=== PATIENT | female | born 1940 | race Caucasian/White ===

== ENCOUNTER → 2021-08-03 09:39 | Outpatient (BNVA) | payer OTHER, SELFPAY | PROVIDERS: Family Provider Family Medicine; Visit Provider Podiatrist Foot & Ankle Surgery | DX: B35.3 Tinea pedis (principal); E11.42 Type 2 diabetes mellitus with diabetic polyneuropathy; M21.611 Bunion of right foot; M21.612 Bunion of left foot; M21.41 Flat foot [pes planus] (acquired), right foot; M21.42 Flat foot [pes planus] (acquired), left foot; L60.3 Nail dystrophy | CPT/HCPCS: 11750 ==

== ENCOUNTER 2021-08-25 07:24 | Day surgery (SDC) | payer OTHER, SELFPAY ==
[2021-08-24 11:50] VITALS: BMI 27.8
[2021-08-25 08:07] VITALS: BP 148/68; PULSE 73; RESP 16; TEMP 36.3; O2SAT 98
--- NOTE | 2021-08-25 08:19 | W.PM.OPSFHP ---
Same Day Surgery H&P Indication for Procedure/HPI DATE OF PROCEDURE: August 25, 2021 CHIEF COMPLAINT/INDICATIONFOR SURGICAL PROCEDURE: History of colon polyps PREOP DIAGNOSIS: History of colon polyps PLANNED PROCEDURE: Operation Date: 08/25/21 09:00 Proposed Procedures p Colonoscopy 19993/z86.010(Not Applicable) - Ben Disla MD 06/04/2021 This is a pleasant 80 years old female patient referred to my practice with history of colon polyps as last colonoscopy was done 2 to 3 years ago.? She denies any bleeding per rectum or history of colon cancer.? She is referred to me for surveillance colonoscopy. 08/25/2021 Patient comes today for surveillance colonoscopy ROS All systems have been reviewed negative except as for the above or per problem list. Medications/Allergies* Home Medications Medication Instructions Recorded Confirmed Type insulin glargine 100 unit/mL 30 unit SUBCUT BEDTIME ml 12/27/20 08/25/21 History subcutaneous solution (Lantus U-100 Insulin) lisinopril 40 mg tablet 40 mg PO DAILY 12/27/20 08/25/21 History metformin 1,000 mg tablet 1,000 mg PO DAILY 12/27/20 08/25/21 History omeprazole 20 mg capsule,delayed 20 mg PO .prn PRN cap 12/27/20 08/25/21 History release cholecalciferol (vitamin D3) 25 25 mcg PO DAILY 08/24/21 08/24/21 History mcg (1,000 unit) tablet (Vitamin D3) ginkgo biloba 60 mg capsule 60 mg PO DAILY 08/24/21 08/24/21 History multivitamin with minerals-folic 1 tab PO DAILY 08/24/21 08/24/21 History acid 200 mcg chewable tablet (Women's Multivitamin Gummies) turmeric root extract 1,053 mg 1,076 mg PO DAILY 08/24/21 08/24/21 History tablet vitamin B complex 1 cap PO DAILY 08/24/21 08/24/21 History zinc 50 mg tablet 50 mg PO DAILY 08/24/21 08/24/21 History Allergies/Adverse Reactions Allergy/AdvReac Type Severity Reaction Status Date / Time tetanus immune globulin Allergy hives Verified 08/25/21 08:19 Pertinent History/Comorbid Conditions* Social History Smoking and tobacco status: never smoked Second hand smoke exposure: No Alcohol intake: never Pertinent Exam Findings alert, oriented x 3, regular rate & rhythm and procedure specific exam findings (Abdominal examination nontender nondistended soft) Recommendations Surgery/Procedure today (Surveillance colonoscopy) Coding Level of Care Code Acute Spray Painter Helper for Eve Llamas
[2021-08-25] MEDS: sodium chloride 0.9% 1,000 ML 30 ML IV (08:22)
--- NOTE | 2021-08-25 08:47 | ANES.PREANE2 ---
Pre-Anesthetic Assessment Height/Weight: Height 1.65 m Weight 75.75 kg Temp Pulse Resp BP Pulse Ox 97.3 F L 73 16 148/68 98 08/25/21 08:07 08/25/21 08:07 08/25/21 08:07 08/25/21 08:07 08/25/21 08:07 Preop Diagnosis: History of colon polyps Operation Date: 08/25/21 09:00 Proposed Procedures p Colonoscopy 66785/z86.010(Not Applicable) - Ben Disla MD Familial anesthetic complications: None Was Beta Jaci taken within 24 hours: N/A Was Clonidine taken within 24 hours: N/A Last intake: Intake Last Liquid Date 08/24/21 Last Liquid Time 21:00 Last Solid Date 08/23/21 Last Solid Time 00:00 Social No alcohol and No tobacco Exam alert, oriented x 3, clear to auscultation bilaterally and regular rate & rhythm Airway Submandibular: within normal limits Cervical ROM: within normal limits Mallampati: Class II CV/HEM Hypertension Metabolic Diabetes Mellitus Anesthetic Plan ASA status: 2 Anesthesia: MAC Medications/Allergies Home Medications Medication Instructions Recorded Confirmed Last Taken Type insulin glargine 100 unit/mL 30 unit SUBCUT BEDTIME ml 12/27/20 08/25/21 08/24/21 History subcutaneous solution (Lantus U-100 Insulin) lisinopril 40 mg tablet 40 mg PO DAILY 12/27/20 08/25/21 08/24/21 History metformin 1,000 mg tablet 1,000 mg PO DAILY 12/27/20 08/25/21 08/24/21 History omeprazole 20 mg capsule,delayed 20 mg PO .prn PRN cap 12/27/20 08/25/21 Unknown History release cholecalciferol (vitamin D3) 25 25 mcg PO DAILY 08/24/21 08/24/21 08/17/21 History mcg (1,000 unit) tablet (Vitamin D3) ginkgo biloba 60 mg capsule 60 mg PO DAILY 08/24/21 08/24/21 08/17/21 History multivitamin with minerals-folic 1 tab PO DAILY 08/24/21 08/24/21 08/17/21 History acid 200 mcg chewable tablet (Women's Multivitamin Gummies) turmeric root extract 1,053 mg 1,076 mg PO DAILY 08/24/21 08/24/21 08/17/21 History tablet vitamin B complex 1 cap PO DAILY 08/24/21 08/24/21 08/17/21 History zinc 50 mg tablet 50 mg PO DAILY 08/24/21 08/24/21 08/17/21 History Allergies Allergy/AdvReac Type Severity Reaction Status Date / Time tetanus immune globulin Allergy hives Verified 08/25/21 08:19 Current Medications Generic Name Dose Route Start Last Admin Trade Name Jaguarq PRN Reason Stop Dose Admin Sodium Chloride 1,000 mls @ 30 mls/hr 08/25/21 08:00 08/25/21 08:22 Sodium Chloride 0.9% IV 30 mls/hr .Q24H ALBIN Administration PFSH Anesthesia Social History Smoking and tobacco status: never smoked Second hand smoke exposure: No Alcohol intake: never Data Anesthesia Cardiac Studies: No Data to Display
[2021-08-25 10:15] VITALS: BP 137/73; PULSE 63; RESP 16; TEMP 36.1; O2SAT 99
[2021-08-25 10:32] VITALS: BP 135/68; PULSE 70; RESP 18; O2SAT 99
--- NOTE | 2021-08-25 13:18 | ANE.PACU2 ---
Inpatient post-anesthesia follow up: Airway intact: Yes Vital signs: Temperature 97 F Pulse Rate 70 Respiratory Rate 18 Blood Pressure 135/68 Pulse Oximetry 99 Oxygen Delivery Me thod Room Air Oxygen Flow Rate Fraction of Inspir ed Oxygen Hydration adequate: Yes Nausea and vomiting: No Pain level: 1 Mental status: Baseline
== END 2021-08-25 10:43 | disposition home or self-care (01) ==
PROVIDERS: PCP Family Medicine; Visit Provider Surgery
PROC: 0DJD8ZZ Inspection of Lower Intestinal Tract, Via Natural or Artificial Opening Endoscopic (ICD-10-PCS; CPT 45378; principal; 2021-08-25 09:00)
DX: Z12.11 Encounter for screening for malignant neoplasm of colon (principal); Z86.010 Personal history of colon polyps; K57.30 Diverticulosis of large intestine without perforation or abscess without bleeding; D12.2 Benign neoplasm of ascending colon; E11.9 Type 2 diabetes mellitus without complications; Z79.4 Long term (current) use of insulin; I10 Essential (primary) hypertension; Z79.84 Long term (current) use of oral hypoglycemic drugs
CPT/HCPCS: 45380; 88305; J2704; J7030

== ENCOUNTER → 2021-08-31 08:08 | Outpatient (BNVA) | payer OTHER, SELFPAY | PROVIDERS: PCP Family Medicine; Visit Provider Podiatrist Foot & Ankle Surgery | DX: L60.8 Other nail disorders (principal); L60.3 Nail dystrophy | CPT/HCPCS: 99213 ==

== ENCOUNTER → 2021-09-06 10:45 | Outpatient (BNVA) | payer OTHER, SELFPAY | PROVIDERS: PCP Family Medicine; Visit Provider Surgery | DX: Z09 Encounter for follow-up examination after completed treatment for conditions other than malignant neoplasm (principal); K57.31 Diverticulosis of large intestine without perforation or abscess with bleeding | CPT/HCPCS: 99213 ==

== ENCOUNTER → 2021-09-28 10:27 | Outpatient (BNVA) | payer OTHER, MEDICARE, SELFPAY | PROVIDERS: PCP Family Medicine; Visit Provider Podiatrist Foot & Ankle Surgery | DX: B35.3 Tinea pedis (principal); E11.42 Type 2 diabetes mellitus with diabetic polyneuropathy; L60.3 Nail dystrophy; M21.611 Bunion of right foot; M21.612 Bunion of left foot; M21.41 Flat foot [pes planus] (acquired), right foot; M21.42 Flat foot [pes planus] (acquired), left foot; Z98.890 Other specified postprocedural states | CPT/HCPCS: 11750; 99214 ==

== ENCOUNTER → 2022-01-02 09:59 | Outpatient (BNVA) | payer OTHER, MEDICARE, SELFPAY | PROVIDERS: PCP Family Medicine; Visit Provider Podiatrist Foot & Ankle Surgery | DX: E11.42 Type 2 diabetes mellitus with diabetic polyneuropathy (principal); L60.0 Ingrowing nail; B35.3 Tinea pedis; L60.3 Nail dystrophy; Z98.890 Other specified postprocedural states; M21.611 Bunion of right foot; M21.41 Flat foot [pes planus] (acquired), right foot; Z79.4 Long term (current) use of insulin; Z79.84 Long term (current) use of oral hypoglycemic drugs; M21.612 Bunion of left foot; M21.42 Flat foot [pes planus] (acquired), left foot | CPT/HCPCS: 99214 ==

== ENCOUNTER → 2022-01-31 09:29 | Outpatient (BNVA) | payer MEDICARE, OTHER, SELFPAY | PROVIDERS: PCP Family Medicine; Visit Provider Otolaryngology | DX: R26.81 Unsteadiness on feet (principal); H95 Intraoperative and postprocedural complications and disorders of ear and mastoid process, not elsewhere classified | CPT/HCPCS: 69220; 99203 ==

== ENCOUNTER 2022-04-24 13:10 | Outpatient (CLI) | payer OTHER, SELFPAY ==
--- NOTE | 2022-04-24 13:37 | USCV_ITS ---
Efrain Veronica Age: 81 Gender: F : 1940 Exam Date: 04/24/2022 14:04 Ordering Phys: Ashtyn Barrera MD Technologist: CT Exam Location: [facility] [place]_ Indication: LEFT BRUIT Risk Factors: Previous Vascular Surgery: Right Brachial BP: / Left Brachial BP: / Right Left Velocity (cm/s) Spectral Plaque Velocity (cm/s) Spectral Plaque Syst/Diast Broadening Syst/Diast Broadening 63.90/ 11.50 Prox CCA 76.30 / 15.10 74.10/ 13.40 Mid CCA 73.10 / 15.50 69.20/ 14.30 Distal CCA 64.40 / 15.30 50.80/ 13.90 Prox ICA 55.10 / 17.20 60.40/ 17.50 Mid ICA 69.30 / 20.10 53.80/ 15.10 Distal ICA 75.60 / 21.90 68.90 ECA 84.90 0.82 ICA/CCA 0.99 Antegrade Vertebral Antegrade 33.20/ 10.30 cm/s 41.40/ 15.80 cm/s Bi Subclavian Bi 78.10 126.2 0 FINDINGS NO STENOSIS CONCLUSIONS Right ICA stenosis <50%. Moderate atheromatous plaque right carotid bulb/ICA. Left ICA stenosis <50%. Moderate atheromatous plaque left carotid bulb/ICA. Normal antegrade Doppler flow noted in the right vertebral artery. Normal antegrade Doppler flow noted in the left vertebral artery. Tyron Isaac MD (Electronically Signed) Final Date: 24 April 2022 17:21 S
== END 2022-04-24 13:11 | disposition home or self-care (01) ==
LOC: RAD 13:28
PROVIDERS: PCP Family Medicine; Visit Provider Family Medicine
DX: R09.89 Other specified symptoms and signs involving the circulatory and respiratory systems (principal); R42 Dizziness and giddiness; I65.23 Occlusion and stenosis of bilateral carotid arteries
CPT/HCPCS: 93880

== ENCOUNTER → 2022-05-04 11:20 | Outpatient (BNVA) | payer MEDICARE, OTHER, SELFPAY | PROVIDERS: PCP Family Medicine; Visit Provider Otolaryngology | DX: H95 Intraoperative and postprocedural complications and disorders of ear and mastoid process, not elsewhere classified (principal) | CPT/HCPCS: 69220; 99213 ==

== ENCOUNTER → 2022-05-08 10:00 | Outpatient (BNVA) | payer OTHER, SELFPAY | PROVIDERS: PCP Family Medicine; Visit Provider Podiatrist Foot & Ankle Surgery | DX: E11.8 Type 2 diabetes mellitus with unspecified complications (principal); B35.3 Tinea pedis; E11.42 Type 2 diabetes mellitus with diabetic polyneuropathy; L60.3 Nail dystrophy; M21.612 Bunion of left foot; M21.611 Bunion of right foot; M21.42 Flat foot [pes planus] (acquired), left foot; M21.41 Flat foot [pes planus] (acquired), right foot; Z79.84 Long term (current) use of oral hypoglycemic drugs; Z79.4 Long term (current) use of insulin | CPT/HCPCS: 99214 ==

== ENCOUNTER → 2022-07-17 09:54 | Outpatient (BNVA) | payer OTHER, SELFPAY | PROVIDERS: PCP Family Medicine; Visit Provider Podiatrist Foot & Ankle Surgery | DX: E11.42 Type 2 diabetes mellitus with diabetic polyneuropathy (principal); L60.3 Nail dystrophy; M21.612 Bunion of left foot; M21.611 Bunion of right foot; M21.42 Flat foot [pes planus] (acquired), left foot; M21.41 Flat foot [pes planus] (acquired), right foot; Z79.84 Long term (current) use of oral hypoglycemic drugs; Z79.4 Long term (current) use of insulin | CPT/HCPCS: 11721 ==

== ENCOUNTER → 2022-10-09 09:41 | Outpatient (BNVA) | payer OTHER, SELFPAY | PROVIDERS: PCP Family Medicine; Visit Provider Podiatrist Foot & Ankle Surgery | DX: E11.8 Type 2 diabetes mellitus with unspecified complications (principal); L60.3 Nail dystrophy; L84 Corns and callosities; E11.42 Type 2 diabetes mellitus with diabetic polyneuropathy; M21.612 Bunion of left foot; M21.611 Bunion of right foot; M21.42 Flat foot [pes planus] (acquired), left foot; M21.41 Flat foot [pes planus] (acquired), right foot; Z79.84 Long term (current) use of oral hypoglycemic drugs | CPT/HCPCS: 11056; 11721 ==

== ENCOUNTER → 2022-10-31 11:20 | Outpatient (BNVA) | payer MEDICARE, OTHER, SELFPAY | PROVIDERS: PCP Family Medicine; Visit Provider Otolaryngology | DX: H95 Intraoperative and postprocedural complications and disorders of ear and mastoid process, not elsewhere classified (principal) | CPT/HCPCS: 69220; 99212 ==

== ENCOUNTER → 2022-12-11 09:33 | Outpatient (BNVA) | payer MEDICARE, OTHER, SELFPAY | PROVIDERS: PCP Family Medicine; Visit Provider Podiatrist Foot & Ankle Surgery | DX: L84 Corns and callosities (principal); E11.8 Type 2 diabetes mellitus with unspecified complications; E11.42 Type 2 diabetes mellitus with diabetic polyneuropathy; L60.3 Nail dystrophy; M21.612 Bunion of left foot; M21.611 Bunion of right foot; M21.42 Flat foot [pes planus] (acquired), left foot; M21.41 Flat foot [pes planus] (acquired), right foot; Z79.84 Long term (current) use of oral hypoglycemic drugs; Z79.4 Long term (current) use of insulin | CPT/HCPCS: 11056; 11721 ==

== ENCOUNTER → 2023-02-12 12:13 | Outpatient (BNVA) | payer OTHER, SELFPAY | PROVIDERS: PCP Family Medicine; Visit Provider Podiatrist Foot & Ankle Surgery | DX: L84 Corns and callosities (principal); E11.8 Type 2 diabetes mellitus with unspecified complications; E11.42 Type 2 diabetes mellitus with diabetic polyneuropathy; L60.3 Nail dystrophy; M21.612 Bunion of left foot; M21.611 Bunion of right foot; M21.42 Flat foot [pes planus] (acquired), left foot; M21.41 Flat foot [pes planus] (acquired), right foot; Z79.84 Long term (current) use of oral hypoglycemic drugs; Z79.4 Long term (current) use of insulin | CPT/HCPCS: 11056; 11721 ==

== ENCOUNTER → 2023-05-30 09:42 | Outpatient (BNVA) | payer OTHER, SELFPAY | PROVIDERS: PCP Family Medicine; Visit Provider Podiatrist Foot & Ankle Surgery | DX: E11.42 Type 2 diabetes mellitus with diabetic polyneuropathy (principal); L60.3 Nail dystrophy; Z79.84 Long term (current) use of oral hypoglycemic drugs; Z79.4 Long term (current) use of insulin | CPT/HCPCS: 99213 ==

== ENCOUNTER → 2023-09-05 09:46 | Outpatient (BNVA) | payer OTHER, SELFPAY | PROVIDERS: PCP Family Medicine; Visit Provider Podiatrist Foot & Ankle Surgery | DX: E11.42 Type 2 diabetes mellitus with diabetic polyneuropathy (principal); L60.3 Nail dystrophy; Z79.84 Long term (current) use of oral hypoglycemic drugs; Z79.4 Long term (current) use of insulin | CPT/HCPCS: 11721 ==

== ENCOUNTER → 2023-12-04 11:48 | Outpatient (BNVA) | payer OTHER, SELFPAY | PROVIDERS: PCP Family Medicine; Visit Provider Podiatrist Foot & Ankle Surgery | DX: E11.42 Type 2 diabetes mellitus with diabetic polyneuropathy (principal); L60.3 Nail dystrophy; Z79.4 Long term (current) use of insulin; Z79.84 Long term (current) use of oral hypoglycemic drugs | CPT/HCPCS: 11721; 99212 ==

== ENCOUNTER → 2024-06-08 10:07 | Outpatient (BNVA) | payer MEDICARE, OTHER, SELFPAY | PROVIDERS: PCP Family Medicine; Visit Provider Orthopaedic Surgery | DX: M25.551 Pain in right hip (principal); S76.311A Strain of muscle, fascia and tendon of the posterior muscle group at thigh level, right thigh, initial encounter; W19.XXXA Unspecified fall, initial encounter | CPT/HCPCS: 73502; 99204 ==

== ENCOUNTER → 2024-06-15 11:04 | Outpatient (BNVA) | payer MEDICARE, OTHER, SELFPAY | PROVIDERS: PCP Family Medicine; Visit Provider Orthopaedic Surgery | DX: S76.311A Strain of muscle, fascia and tendon of the posterior muscle group at thigh level, right thigh, initial encounter (principal); X58.XXXA Exposure to other specified factors, initial encounter | CPT/HCPCS: 99213 ==

== ENCOUNTER → 2024-06-22 09:46 | Outpatient (BNVA) | payer MEDICARE, OTHER, SELFPAY | PROVIDERS: PCP Family Medicine; Visit Provider Podiatrist Foot & Ankle Surgery | DX: E11.42 Type 2 diabetes mellitus with diabetic polyneuropathy (principal); L60.3 Nail dystrophy; Z79.4 Long term (current) use of insulin | CPT/HCPCS: 11721 ==

== ENCOUNTER → 2024-06-29 11:39 | Outpatient (BNVA) | payer MEDICARE, OTHER, SELFPAY | PROVIDERS: PCP Family Medicine; Visit Provider Orthopaedic Surgery | DX: S76.311A Strain of muscle, fascia and tendon of the posterior muscle group at thigh level, right thigh, initial encounter (principal); X58.XXXA Exposure to other specified factors, initial encounter | CPT/HCPCS: 99213 ==

== ENCOUNTER → 2024-08-10 07:56 | Outpatient (BNVA) | payer MEDICARE, OTHER, SELFPAY | PROVIDERS: PCP Family Medicine; Visit Provider Orthopaedic Surgery | DX: S76.311D Strain of muscle, fascia and tendon of the posterior muscle group at thigh level, right thigh, subsequent encounter (principal); X58.XXXD Exposure to other specified factors, subsequent encounter | CPT/HCPCS: 99213 ==

== ENCOUNTER → 2024-08-25 12:45 | Outpatient (BNVA) | payer MEDICARE, OTHER, SELFPAY | PROVIDERS: PCP Family Medicine; Visit Provider Podiatrist Foot & Ankle Surgery | DX: E11.42 Type 2 diabetes mellitus with diabetic polyneuropathy (principal); L60.3 Nail dystrophy | CPT/HCPCS: 99213 ==

== ENCOUNTER → 2024-09-24 09:02 | Outpatient (BNVA) | payer MEDICARE, OTHER, SELFPAY | PROVIDERS: PCP Family Medicine; Visit Provider Podiatrist Foot & Ankle Surgery | DX: L60.3 Nail dystrophy (principal); E11.42 Type 2 diabetes mellitus with diabetic polyneuropathy | CPT/HCPCS: 11750; J9999 ==

== ENCOUNTER → 2024-10-12 11:08 | Outpatient (BNVA) | payer MEDICARE, OTHER, SELFPAY | PROVIDERS: PCP Family Medicine; Visit Provider Podiatrist Foot & Ankle Surgery | DX: E11.42 Type 2 diabetes mellitus with diabetic polyneuropathy (principal); L60.3 Nail dystrophy; Z98.890 Other specified postprocedural states | CPT/HCPCS: 99213 ==

== ENCOUNTER → 2024-11-19 09:40 | Outpatient (BNVA) | payer MEDICARE, OTHER, SELFPAY | PROVIDERS: PCP Family Medicine; Visit Provider Podiatrist Foot & Ankle Surgery | DX: E11.42 Type 2 diabetes mellitus with diabetic polyneuropathy (principal); L60.3 Nail dystrophy | CPT/HCPCS: 99213 ==

== ENCOUNTER → 2024-12-17 09:47 | Outpatient (BNVA) | payer MEDICARE, OTHER, SELFPAY | PROVIDERS: PCP Family Medicine; Visit Provider Podiatrist Foot & Ankle Surgery | DX: L60.3 Nail dystrophy (principal); E11.42 Type 2 diabetes mellitus with diabetic polyneuropathy | CPT/HCPCS: 11750; J9999 ==

== ENCOUNTER → 2025-02-16 10:20 | Outpatient (BNVA) | payer MEDICARE, OTHER, SELFPAY | PROVIDERS: PCP Family Medicine; Visit Provider Podiatrist Foot & Ankle Surgery | DX: E11.8 Type 2 diabetes mellitus with unspecified complications (principal); L60.3 Nail dystrophy; E11.42 Type 2 diabetes mellitus with diabetic polyneuropathy | CPT/HCPCS: 99213 ==